=== PATIENT | female | born 1945 | race Two or more races ===

== ENCOUNTER → 2018-06-24 | Outpatient (CLI) | payer MEDICARE ==
[2018-06-24 10:36] LABS: ANION GAP 10 (5-19); BLOOD UREA NITROGEN 11 mg/dL (7-20); CALCIUM 9.8 mg/dL (8.4-10.2); CARBON DIOXIDE 22 mmol/L (22-30); CHLORIDE 110 mmol/L (98-107); GLUCOSE 105 mg/dL (75-110); POTASSIUM 3.2 mmol/L (3.6-5.0); SODIUM 141.7 mmol/L (137-145)
== END ==
LOC: OD 09:28
PROVIDERS: ATTEND Internal Medicine Gastroenterology
DX: E87.5 Hyperkalemia (principal); R19.7 Diarrhea, unspecified
CPT/HCPCS: 36415; 80048; 87045; 87205; 87493; 89055

== ENCOUNTER → 2018-11-10 | Outpatient (CLI) | payer MEDICARE ==
--- NOTE | 2018-11-10 17:10 | XCELERA REPORT ---
[address] [address] Transthoracic Echocardiogram Report Name: MONIK BAUTISTA Age: 72 yrs Gender: Female : 1945 Patient Status: Outpatient Patient Location: [facility] Study Date: 11/10/2018 09:32 AM Height: 49 in Weight: 134 lb BSA: 1.4 m2 Procedure: A complete two-dimensional transthoracic echocardiogram was performed (2D, M-mode, spectral and color flow Doppler). The study was technically adequate with some images being suboptimal in quality. Reason For Study: PRIMARY HYPERTENSION Ordering Physician: ROSSY ZELAYA Performed By: Suzie Brown Interpretation Summary The left ventricular ejection fraction is normal. Doppler measurements suggest pseudonormalized left ventricular relaxation, which is associated with grade II/IV or mild to moderate diastolic dysfunction There is mild concentric left ventricular hypertrophy. The left ventricle is grossly normal size. Wall motion cannot be accurately commented on, but no definite regional wall motion abnormalities noted. The right ventricular systolic function is normal. The left atrium is mildly dilated. The right atrium is normal. There is a trace amount of mitral regurgitation There is no mitral valve stenosis. No aortic regurgitation is present. There is no aortic valve stenosis No tricuspid regurgitation. There is no tricuspid stenosis. The aortic root is not well visualized but is probably normal size. The inferior vena cava was not well visualized There is no pericardial effusion. MMode/2D Measurements & Calculations RVDd: 3.1 cm LVIDd: 4.0 cm FS: 36.8 % Ao root diam: 2.3 cm IVSd: 0.76 cm LVIDs: 2.5 cm EDV(Teich): 68.8 ml Ao root area: 4.0 cm2 LVPWd: 0.82 cm ESV(Teich): 22.5 ml EF(Teich): 67.2 % Doppler Measurements & Calculations MV E max timo: MV dec slope: Ao V2 max: LV V1 max P.8 cm/sec 414.0 cm/sec2 134.7 cm/sec 5.3 mmHg MV A max timo: MV dec time: 0.22 secAo max PG: LV V1 max: 131.0 cm/sec 7.3 mmHg 114.7 cm/sec MV E/A: 0.69 PA V2 max: TR max timo: 82.8 cm/sec 264.3 cm/sec PA max P.7 mmHg TR max P.0 mmHg Left Ventricle The left ventricle is grossly normal size. There is mild concentric left ventricular hypertrophy. The left ventricular ejection fraction is normal. Doppler measurements suggest pseudonormalized left ventricular relaxation, which is associated with grade II/IV or mild to moderate diastolic dysfunction. Wall motion cannot be accurately commented on, but no definite regional wall motion abnormalities noted. Right Ventricle The right ventricle is grossly normal size. There is normal right ventricular wall thickness. The right ventricular systolic function is normal. Atria The right atrium is normal. The left atrium is mildly dilated. Interarterial septum not well visualized and not well dopplered. Cannot comment on ASD/PFO presence. Mitral Valve The mitral valve is grossly normal. There is no mitral valve stenosis. There is a trace amount of mitral regurgitation. Aortic Valve The aortic valve is grossly normal. There is no aortic valve stenosis. No aortic regurgitation is present. Tricuspid Valve The tricuspid valve is not well visualized, but is grossly normal. There is no tricuspid stenosis. No tricuspid regurgitation. Pulmonic Valve The pulmonic valve is not well visualized. Great Vessels The aortic root is not well visualized but is probably normal size. The inferior vena cava was not well visualized. Effusions There is no pericardial effusion. : ROSSY ZELAYA Shyamal
== END ==
LOC: SP 09:21
PROVIDERS: ATTEND Physician Assistant
DX: I10 Essential (primary) hypertension (principal)
CPT/HCPCS: 93306